=== PATIENT | male | born 1985 | race American Indian/Alaskan Native ===

== ENCOUNTER 2016-09-25 04:57 | Emergency (ER) | payer SELFPAY ==
[2016-09-25 05:16] VITALS: BP 144/105
== END 2016-09-25 08:55 | disposition left against medical advice (07) ==
LOC: ED 04:57
DX: K08.89 Other specified disorders of teeth and supporting structures (principal); Z53.21 Procedure and treatment not carried out due to patient leaving prior to being seen by health care provider

== ENCOUNTER 2016-09-25 20:24 | Emergency (ER) | payer SELFPAY | END 2016-09-25 20:33 | disposition left against medical advice (07) | LOC: ED 20:24 | DX: K08.89 Other specified disorders of teeth and supporting structures (principal); R51 Headache; Z53.21 Procedure and treatment not carried out due to patient leaving prior to being seen by health care provider ==

== ENCOUNTER 2016-10-04 02:20 | Emergency (ER) | payer SELFPAY ==
[2016-10-04 02:43] VITALS: BP 161/115
[2016-10-04] MEDS ORDERED: TYLENOL ONE (02:45)
[2016-10-04] MEDS ORDERED: TYLENOL PO ONE (02:45)
[2016-10-04] MEDS ORDERED: PROVENTIL IH ONE (03:19)
== END 2016-10-04 06:50 | disposition left against medical advice (07) ==
LOC: ED 02:20
DX: K08.89 Other specified disorders of teeth and supporting structures (principal); Z53.21 Procedure and treatment not carried out due to patient leaving prior to being seen by health care provider

== ENCOUNTER 2019-05-24 20:46 | Emergency (ER) | payer SELFPAY ==
--- NOTE | 2019-05-24 21:29 | Event Note ---
ED Screening Note Date of service: 05/24/19 Time: :28 ED Screening Note: 34 y o male presents with right sided chest pain with nausea and sob This initial assessment/diagnostic orders/clinical plan/treatment(s) is/are subject to change based on patients health status, clinical progression and re- assessment by fellow clinical providers in the ED. Further treatment and workup at subsequent clinical providers discretion. Patient/guardian urged not to elope from the ED as their condition may be serious if not clinically assessed and managed. Initial orders include: ekg, cxr
[2019-05-24 21:30] VITALS: BP 144/86
== END 2019-05-24 21:45 | disposition left against medical advice (07) ==
LOC: ED 20:46
DX: R07.89 Other chest pain (principal); Z53.21 Procedure and treatment not carried out due to patient leaving prior to being seen by health care provider
CPT/HCPCS: 82962; 93005; 93010